=== PATIENT | female | born 1995 | race Caucasian/White ===

== ENCOUNTER 2016-07-19 11:57 | Emergency (ER) | payer MEDICAID ==
[~2016-07-19] VITALS: Ht 162.6 cm; Wt 59.8 kg
[~2016-07-19 11:57] MED LIST: METR0.7512 VAGINAL; PREN1CAP7 PO
[2016-07-19 12:05] VITALS: BP 129/78; PULSE 103; RESP 20; TEMP 98.2; O2SAT 96
--- NOTE | 2016-07-19 12:17 | PD ---
HPI Chief Complaint: Cold / Flu Symptoms Time Seen by Provider: 12:17 Travel History International Travel<30 days: No Contact w/Intl Traveler<30days: No Traveled to known affect area: No History of Present Illness HPI 20-year-old 25 weeks gravid female presents to ED for evaluation of 6 day history of sinus congestion, clear rhinorrhea, left-sided ear pain, sore throat, nonproductive cough, fevers. Patient states that the cough keeps her up at night. She endorses mild, dull, intermittent headache, resolved on presentation. She denies chest pain, palpitations, shortness of breath, abdominal pain, nausea, vomiting, dysuria. She denies sick contacts. She has not taken any medication to treat her symptoms. The patient is a current smoker. She states that she called her OB and was referred to the emergency room. PFSH Past Medical History Hx Anticoagulant Therapy: No ADHD: No Anxiety: Yes Cancer: No Cardiovascular Problems: Yes (MURMUR) Diabetes: No Diminished Hearing: No Psychiatric: Yes (ANXIETY) Immunizations Current: Yes Migraines: No Seizures: No Thyroid Disease: No Ulcer: No ?: LMP: 25 WEEKS : 6 Para: 4 Miscarriage: 1 Past Surgical History Appendectomy: No Cardiac Surgery: Yes Cholecystectomy: No Tonsillectomy: Yes (adnoids) Other Surgery: Yes (NASAL) Social History Alcohol Use: No Tobacco Use: Yes (05/14PPD) Substance Use: No (Pt stopped "smoking marijuana one month ago" ) Allergies-Medications (Allergen,Severity, Reaction): Coded Allergies: No Known Allergies (Unverified , 07/19/16) Reported Meds & Prescriptions Reported Meds & Active Scripts Active Proair Hfa 8.5 GM Inh (Albuterol Sulfate) 90 Mcg/Act Aer 2 Puff INH Q4-6H PRN 108 mcg/actuation Citranatal [place] ( W/O Vit A W/ Fe Fumar) 27-1-260 Mg Cap 1 Cap PO DAILY Review of Systems Except as stated in HPI: all other systems reviewed are Neg Physical Exam Narrative GENERAL: Well-nourished, well-developed nontoxic appearing white female in no acute distress. SKIN: Warm and dry. HEAD: Normocephalic. Atraumatic. EYES: No scleral icterus. No injection or drainage. PERRLA. EOMI. ENT: Pearly baker tympanic membrane on the right. Large cerumen occlusion on the left. Nasal mucosa is moist. Oropharynx without erythema, edema or exudate. NECK: Supple, trachea midline. No JVD or lymphadenopathy. CARDIOVASCULAR: Regular rate and rhythm without murmurs, gallops, or rubs. 2+ DP and radial pulses bilaterally. RESPIRATORY: Breath sounds clear and equal bilaterally. Mild expiratory wheezing in all lung nogueira. No accessory muscle use. GASTROINTESTINAL: Abdomen soft, non-tender, nondistended. + Bowel sounds MUSCULOSKELETAL: No cyanosis, or edema. Patient is observed to walk with a normal gait. BACK: Nontender without obvious deformity. No CVA tenderness. Data Data Last Documented VS Vital Signs Date Time Temp Pulse Resp B/P Pulse Ox O2 Delivery O2 Flow Rate FiO2 07/19/16 12:05 98.2 103 20 129/78 96 Orders Albuterol-Ipratropium Neb (Duoneb Neb) (07/19/16 12:30) MDM Medical Decision Making Medical Screen Exam Complete: Yes Emergency Medical Condition: Yes Differential Diagnosis Viral syndrome versus pharyngitis versus less likely pneumonia versus other Narrative Course 20-year-old 25 weeks gravid female presents to ED for evaluation of 6 day history of sinus congestion, clear rhinorrhea, left-sided ear pain, sore throat, nonproductive cough, fevers. Patient states that the cough keeps her up at night. She endorses mild, dull, intermittent headache, resolved on presentation. She denies chest pain, palpitations, shortness of breath, abdominal pain, nausea, vomiting, dysuria. Current smoker, no treatment at home. Vitals reviewed. Physical exam reveals a nontoxic-appearing white female in no acute distress. There is a large cerumen occlusion on the left ear , ENT exam is otherwise unremarkable. There is mild respiratory wheezing in all lung nogueira physical exam is otherwise unremarkable. Patient was administered a single DuoNeb which did subjectively improve her breathing. Mild to moderate improvement of wheezing on auscultation. This is viral syndrome. Patient was encouraged to use symptomatic care with [id number] guaifenesin, Tylenol her as needed. She is also instructed to use a metal fire at night to decrease cough. She was prescribed an albuterol rescue inhaler 2 puffs 4 times a day. And SOB. She is instructed to call her OB for follow-up on Thursday. She indicated understanding of instructions and was amenable to plan of care. She is stable and discharged home. Diagnosis Primary Impression: Viral syndrome Referrals: [facility] Patient Instructions: General Instructions, Viral Syndrome (ED) Additional Instructions: Rest, hydrate. Push fluids such as sports drinks, Pedialyte, popsicles, clear broth. Symptoms should resolve approximately 10 days. Sleep in a room with a humidifier at night to help decrease coughing. Albuterol inhaler as needed for wheezing and shortness of breath. [id number] medications containing guaifenesin are safe in and may help to reduce cough symptoms. Tylenol every 4-6 hours as needed for continued fever. Increase handwashing frequently to avoid the spread of the virus to other family members and the community. Disinfect commonly touched surfaces such as light switches, microwaves, remote controls. Replace toothbrush at the end of this illness. Follow-up with the primary care provider this week. Return to the ED for any urgent or emergent medical condition. Med/Other Pt SpecificInfo: Prescription(s) given Scripts Albuterol 8.5 GM Inh (Proair Hfa 8.5 GM Inh)90 Mcg/Act Aer2 Puff INH Q4-6H PRN ( SHORTNESS OF BREATH) #1 INHALER Ref 0 108 mcg/actuation Prov:Av Wilkins MD 07/19/16 Disposition: 01 DISCHARGE HOME Condition: Stable Nayeli Benítez Jul 19, 2016 12:17
[2016-07-19] MEDS ORDERED: RESP: ALBUTEROL 2.5 MG/IPRATROPIUM 0.5 MG NEB (SCH) NEB ONE (12:30)
[2016-07-19] MEDS ORDERED: ALBUAER3 INH (12:52)
[2016-08-29] MEDS ORDERED: PROC2.5C RECTAL (11:25)
[2016-08-29] MEDS ORDERED: PREN1CAP7 PO (11:25)
== END 2016-07-19 13:18 | disposition home or self-care (01) ==
LOC: PHEFT 11:57
DX: B34.9 Viral infection, unspecified (principal)
CPT/HCPCS: 94664; 99283